=== PATIENT | male | born 1955 | race Caucasian/White ===

== ENCOUNTER → 2020-09-16 | Outpatient (CLI) | payer BC, MEDICARE, OTHER ==
[~2020-09-16] MED LIST: LISI-167 PO; MTH/1CAP2 PO; TAMS-11 PO
[2020-09-16 11:30] LABS: ALANINE AMINOTRANSFERASE 120 U/L (12-78); ALBUMIN 3.9 g/dL (3.4-5.0); ANION GAP 7 mmol/L (5-15); CALCIUM 8.9 mg/dL (8.5-10.1); CHLORIDE 109 mmol/L (98-107); CREATININE 0.94 mg/dL (0.7-1.3)
[2020-09-16 11:32] LABS: ALKALINE PHOSPHATASE 117 U/L (45-117); BILIRUBIN,TOTAL 1.1 mg/dL (0.2-1.0); TOTAL PROTEIN 7.2 g/dL (6.4-8.2)
== END | disposition home or self-care (01) ==
LOC: STAR 10:09
PROVIDERS: ATTEND Urology
DX: Z01.812 Encounter for preprocedural laboratory examination (principal); Z20.828 Contact with and (suspected) exposure to other viral communicable diseases; N21.0 Calculus in bladder; I25.2 Old myocardial infarction; R94.31 Abnormal electrocardiogram [ECG] [EKG]
CPT/HCPCS: 80053; 87635; 93005

== ENCOUNTER 2020-09-22 05:49 | Day surgery (SDC) | payer BC, MEDICARE, OTHER ==
[~2020-09-22] VITALS: Ht 185.4 cm; Wt 107.0 kg
[2020-09-22] MEDS ORDERED: CHLORHEXIDINE 15 ML UDC MM ONE (07:00)
[2020-09-22] MEDS ORDERED: LACTATED RINGERS 1,000 ML IV SCH (07:00)
[2020-09-22] MEDS ORDERED: FENTANYL PF 250 MCG/5ML ONE (07:16)
[2020-09-22] MEDS ORDERED: MIDAZOLAM 1 MG/ML, 2ML ONE (07:16)
[2020-09-22] MEDS ORDERED: PROPOFOL 50 ML ONE ×3 (07:16→09:48)
[2020-09-22] MEDS ORDERED: ONDANSETRON 2MG/ML, 2ML ONE (08:26)
[2020-09-22] MEDS ORDERED: LABETALOL 5MG/ML, 20ML ONE (08:26)
[2020-09-22] MEDS ORDERED: ROCURONIUM 10 MG/ML,10ML ONE (08:26)
[2020-09-22] MEDS ORDERED: DEXAMETHASONE 4 MG/ML, 1ML ONE (08:26)
[2020-09-22] MEDS ORDERED: SUCCINYLCHOLINE 20 MG/ML, 10ML ONE (08:26)
[2020-09-22] MEDS ORDERED: FENTANYL PF 100 MCG/2ML IV PRN (10:00)
[2020-09-22] MEDS ORDERED: EPHEDRINE 50 MG/ML, 1ML IM PRN (10:00)
[2020-09-22] MEDS ORDERED: DIPHENHYDRAMINE 50 MG/ML, 1ML IVPush PRN (10:00)
[2020-09-22] MEDS ORDERED: EPHEDRINE 50 MG/ML, 1ML IVPush PRN (10:00)
[2020-09-22] MEDS ORDERED: OXYcodone 5 MG/5 ML ORAL.SOL UDC PO PRN (10:00)
[2020-09-22] MEDS ORDERED: morphine SULFATE 10 MG/ML, 1ML IVPush PRN (10:00)
[2020-09-22] MEDS ORDERED: PROMETHAZINE 25 MG/ML, 1ML IVPush PRN (10:00)
[2020-09-22] MEDS ORDERED: MEPERIDINE/PF 25MG/0.5ML IVPush PRN (10:00)
[2020-09-22] MEDS ORDERED: ONDANSETRON 2MG/ML, 2ML IVPush PRN (10:00)
[2020-09-22] MEDS ORDERED: ACETAMINOPHEN 325 MG TABLET PO PRN (10:00)
[2020-09-22] MEDS ORDERED: DIAZEPAM 5 MG/ML, 2ML IVPush PRN (10:00)
[2020-09-22] MEDS ORDERED: KETOROLAC 30 MG/1 ML IVPush PRN (10:00)
[2020-09-22] MEDS ORDERED: LABETALOL 5MG/ML, 20ML IV PRN (10:00)
[2020-09-22] MEDS ORDERED: KETOROLAC 30 MG/1 ML ONE (10:20)
[2020-09-22] MEDS ORDERED: OPIUM/BELLADONNA SUPP.RECT 16.2-60 MG ONE (10:20)
[2020-09-22] MEDS ORDERED: OPIUM/BELLADONNA SUPP.RECT 16.2-60 MG PR PRN (10:30)
[2020-09-22] MEDS ORDERED: OXYcodone/APAP 5/325MG TABLET PO PRN (10:30)
[2020-09-22] MEDS ORDERED: KETOROLAC 30 MG/1 ML IV PRN (10:30)
[2020-09-22] MEDS ORDERED: FENTANYL PF 100 MCG/2ML ONE (10:35)
[2020-09-22] MEDS ORDERED: OXYcodone 5 MG/5 ML ORAL.SOL UDC ONE (11:09)
== END 2020-09-22 13:15 | disposition home or self-care (01) ==
LOC: OUT 05:49
PROVIDERS: ATTEND Urology
DX: N21.0 Calculus in bladder (principal); I10 Essential (primary) hypertension; Z79.899 Other long term (current) drug therapy
CPT/HCPCS: 52317; 82360; 88300; J0330; J1100; J1885; J2250; J2405; J2704; J3010; J7120